=== PATIENT | male | born 1980 ===

== ENCOUNTER 2021-03-31 08:48 | Emergency (ER) | payer OTHER ==
[~2021-03-31] VITALS: Ht 157.5 cm; Wt 73.9 kg
[2021-03-31] MEDS ORDERED: ZITHROMAX500 MG PO (13:09)
[2021-03-31] MEDS ORDERED: IBU600 MG PO (13:09)
== END 2021-03-31 14:15 | disposition home or self-care (01) ==
LOC: ER 08:48
DX: J31.2 Chronic pharyngitis (principal); B96.0 Mycoplasma pneumoniae [M. pneumoniae] as the cause of diseases classified elsewhere; Z20.822 Contact with and (suspected) exposure to COVID-19

== ENCOUNTER 2022-03-07 16:39 | Emergency (ER) | payer OTHER ==
[~2022-03-07] VITALS: Ht 157.5 cm; Wt 73.9 kg
[~2022-03-07 16:39] MED LIST: IBU600 MG PO; ZITHROMAX500 MG PO
[2022-03-07] MEDS ORDERED: TUSICOF LIQUID120 ML PO (21:04)
[2022-03-07] MEDS ORDERED: ZITHROMAX500 MG PO (21:04)
[2022-03-07] MEDS ORDERED: MEDROLPACK PO (21:04)
== END 2022-03-07 21:14 | disposition home or self-care (01) ==
LOC: ER 16:39
DX: U07.1 COVID-19 (principal)